=== PATIENT | male | born 1945 | race Caucasian/White ===

== ENCOUNTER 2019-02-10 10:40 | Emergency (ER) | payer OTHER ==
[~2019-02-10] VITALS: Ht 182.9 cm; Wt 108.4 kg
--- NOTE | 2019-02-10 11:31 | Diagnostic Imaging Report ---
INDICATION: Hypertension and chest pain. TIME OF EXAMINATION: 11:15 AM. TECHNIQUE: No prior studies are available for comparison. FINDINGS: The heart size is normal. The pulmonary vascularity is unremarkable. The lungs are clear. No infiltrate, effusion, or pneumothorax is detected. IMPRESSION: No acute cardiopulmonary process is detected. Dictated by: Dictated on workstation # [id number]
[2019-02-10 11:43] LABS: BASOPHILS % (AUTO) 0 % (0-10); EOSINOPHILS # (AUTO) 0.4 10^3/uL (0.0-0.3); EOSINOPHILS % (AUTO) 3 % (0-10); HEMATOCRIT 48 % (40-54); HEMOGLOBIN 15.8 G/DL (13.3-17.7); LYMPHOCYTES # (AUTO) 1.9 X 10^3 (1.0-4.0); LYMPHOCYTES % (AUTO) 18 % (12-44); MEAN CORPUSCULAR HEMOGLOBIN 30 PG (25-34); MEAN CORPUSCULAR HGB CONC 33 G/DL (32-36); MEAN CORPUSCULAR VOLUME 92 FL (80-99); MEAN PLATELET VOLUME 10.4 FL (7.4-10.4); MONOCYTES # (AUTO) 1.3 X 10^3 (0.0-1.0); MONOCYTES % (AUTO) 12 % (0-12); NEUTROPHILS # (AUTO) 7.1 X 10^3 (1.8-7.8); NEUTROPHILS % (AUTO) 66 % (42-75); PLATELET COUNT 217 10^3/uL (130-400); RED CELL DISTRIBUTION WIDTH 14.4 % (10.0-14.5); WHITE BLOOD COUNT 10.8 10^3/uL (4.3-11.0)
[2019-02-10 12:00] LABS: PROTHROMBIN TIME PATIENT 13.1 SEC (12.2-14.7)
[2019-02-10 12:07] LABS: ALANINE AMINOTRANSFERASE 36 U/L (0-55); ALBUMIN 3.9 GM/DL (3.2-4.5); ALKALINE PHOSPHATASE 71 U/L (40-136); BILIRUBIN,TOTAL 0.7 MG/DL (0.1-1.0); BUN/CREATININE RATIO 14; CALCIUM 9.9 MG/DL (8.5-10.1); CARBON DIOXIDE 26 MMOL/L (21-32); CHLORIDE 105 MMOL/L (98-107); CREATININE SERUM 1.38 MG/DL (0.60-1.30); GFR ESTIMATED 51; GLUCOSE 99 MG/DL (70-105); MAGNESIUM 1.9 MG/DL (1.8-2.4); SODIUM 141 MMOL/L (135-145); TOTAL PROTEIN 7.8 GM/DL (6.4-8.2)
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
[2019-02-10 13:13] VITALS: BP 135/83
== END 2019-02-10 13:13 | disposition home or self-care (01) ==
LOC: EDUNIT# 10:40 → ER 10:41
DX: I49.3 Ventricular premature depolarization (principal); M54.12 Radiculopathy, cervical region; I10 Essential (primary) hypertension; F17.210 Nicotine dependence, cigarettes, uncomplicated
CPT/HCPCS: 36415; 71045; 80053; 83735; 83874; 84484; 85025; 85610; 85730; 93005; 93041

== ENCOUNTER → 2019-04-02 | Outpatient (CLI) | payer OTHER ==
[~2019-04-02] MED LIST: CATHETER FLUSH 10 ML SYR IV PRN; REGADENOSON 0.4 MG/5 ML SYR (LEXISCAN) IV ONE
[2019-04-02 10:13] VITALS: BP 159/89
[2019-04-02 10:16] VITALS: BP 158/77
--- NOTE | 2019-04-02 12:40 | STRESS TEST ---
DATE OF SERVICE: 04/02/2019 LEXISCAN MYOVIEW STRESS TEST REPORT REFERRING PHYSICIAN: There is no referring physician. Baseline heart rate is 58, baseline blood pressure 156/89. Baseline EKG is sinus rhythm with frequent PVCs. In summary, the patient received 10.91 mCi of technetium-99 Myoview and the resting images were obtained. Then, the patient received 0.4 mg of Lexiscan followed by 30.1 mCi of technetium-99 Myoview. Throughout the test, there were no EKG changes. The resting and stress images were reviewed and compared in the short axis, horizontal long axis, and vertical long axis views. Review of the images showed diaphragmatic attenuation with good radiotracer uptake, no significant ischemia or infarction. SSS is 1, SDS 1, TID value 1.07. On the gated images, the left ventricle appeared to be normal size with normal contractility. Calculated ejection fraction 56%. CONCLUSION: 1. The patient tolerated Lexiscan well. 2. No ischemia or infarction on SPECT images. 3. Normal left ventricular size with normal contractility. Calculated ejection fraction 56%. Job ID: [id number] DocumentID: [id number] Dictated Date: 04/02/2019 11:54:03 Hand Spray Operator Date: 04/02/2019 12:39:45 Dictated By: RICO TRIMBLE MD
== END ==
LOC: CARD 08:09
PROVIDERS: ATTEND Internal Medicine Cardiovascular Disease
DX: E78.2 Mixed hyperlipidemia (principal); I10 Essential (primary) hypertension; R94.31 Abnormal electrocardiogram [ECG] [EKG]; R06.09 Other forms of dyspnea
CPT/HCPCS: 78452; 93017; 93225; 93226; 93306

== ENCOUNTER 2019-05-14 08:32 | Day surgery (SDC) | payer OTHER ==
[2019-05-14] VITALS (12 sets, daily range): BP systolic 108–140; BP diastolic 57–87
[~2019-05-14] VITALS: Ht 183 cm; Wt 105.0 kg
[2019-05-14] MEDS ORDERED: NS IV 1000 ML 1,000 ML ONE (08:41)
[2019-05-14] MEDS ORDERED: LIDOCAINE 1% INJ 20 ML 20 ML VIAL ONE (08:41)
[2019-05-14] MEDS ORDERED: HEParin (CATH LAB) 2,000 ML IV ONE (08:41)
[2019-05-14] MEDS ORDERED: NS IV 1000 ML 1,000 ML IV SCH ×2 (08:45→11:06)
[2019-05-14 09:15] LABS: MEAN PLATELET VOLUME 10.4 FL (7.4-10.4); WHITE BLOOD COUNT 9.9 10^3/uL (4.3-11.0)
--- NOTE | 2019-05-14 09:26 | Diagnostic Imaging Report ---
INDICATION: Pre-heart catheterization. Patient has hypertension. TIME OF EXAMINATION: 9:01 AM. COMPARISON: Correlation is made with the prior chest from 02/10/2019. FINDINGS: The heart size is stable. The pulmonary vascularity is within normal limits. No infiltrate is detected. No effusion or pneumothorax is identified. There is no evidence of congestive failure. IMPRESSION: No acute cardiopulmonary process is detected. Dictated by: Dictated on workstation # [id number]
[2019-05-14] MEDS ORDERED: CRV25T PO (09:30)
[2019-05-14] MEDS ORDERED: GABA-486 PO (09:30)
[2019-05-14] MEDS ORDERED: RANI150T90 PO (09:30)
[2019-05-14] MEDS ORDERED: NIACIN PO (09:34)
[2019-05-14 09:36] LABS: PROTHROMBIN TIME PATIENT 13.2 SEC (12.2-14.7)
[2019-05-14 09:42] LABS: ALBUMIN 4.2 GM/DL (3.2-4.5); BILIRUBIN,TOTAL 0.5 MG/DL (0.1-1.0); CALCIUM 9.7 MG/DL (8.5-10.1); CREATININE SERUM 1.29 MG/DL (0.60-1.30); POTASSIUM 4.2 MMOL/L (3.6-5.0)
[2019-05-14] MEDS ORDERED: IBUP-2055 PO (09:42)
[2019-05-14] MEDS ORDERED: ASPI325T32 PO (09:42)
--- NOTE | 2019-05-14 10:15 | NUR ---
SPOKE WITH THE PT (HE HAS HIS HOME MEDS) TO COMPLETE THE MED REC. GABAPENTIN: THE BOTTLE SAYS " 2 CAPS HS" BUT PT SAYS HE JUST TAKES 1 CAP HS RANITIDINE: THE BOTTLE SAYS "1 TAB DAILY" PT SAYS HE TAKES 2 TABS DAILY BUT ONLY TAKES PRN THE FOLLOWING ARE FILL DATES: 04-24-2019 GABAPENTIN #180/180DS 04-24-2019 CARVEDILOL #180/90DS 05-11-2019 RANITIDINE #90/45 DS (BUT ONLY USES PRN) OTC MEDS: ASPIRIN 1 DAILY WITH NIACIN
[2019-05-14] MEDS ORDERED: MIDAZOLAM 5 MG/5 ML (VERSED) VIAL ONE (10:26)
[2019-05-14] MEDS ORDERED: fentaNYL INJECTION 100 MCG/2 ML AMP ONE (10:27)
--- NOTE | 2019-05-14 10:27 | Cardiac Procedure Note-CS/ASA ---
Pre-Procedure Note Pre-Op Procedure Note H&P Reviewed The H&P was reviewed, patient examined and no changes noted. Date H&P Reviewed: May 14, 2019 Time H&P Reviewed: 10:27 Conscious Sedation Pre-Proced Time 10:27 ASA Score 3 For ASA 3 and 4: Consider anesthesia and medical clearance. Also, for patients with a history of failed moderate sedation consider anesthesia. Airway Lungs Heart ASA score ASA 1: a normal healthy patient ASA 2: a patient with a mild systemic disease (mid diabetes, controlled hypertension, obesity x ASA 3: a patient with a severe systemic disease that limits activity (angina, COPD, prior Myocardial infarction) ASA 4: a patient with an incapacitating disease that is a constant threat to life (CHF, renal failure) ASA 5: a moribund patient not expected to survive 24 hrs. (ruptured aneurysm) ASA 6: a declared brain- patient whose organs are being harvested. For emergent operations, add the letter E after the classification Mallampati Classification Grade 3 Sedation Plan Analgesia, Amnesia, Plan communicated to team members, Discussed options with patient/fam, Discussed risks with patient/fam The patient is an appropriate candidate to undergo the planned procedure, sedation, and anesthesia. The patient immediately re-assessed prior to indication. RICO TRIMBLE MD May 14, 2019 10:27 POS
[2019-05-14] MEDS ORDERED: meTOprolol 5 MG/5 ML (LOPRESSOR) VIAL ONE (10:43)
[2019-05-14] MEDS ORDERED: NITRO DRIP 25000 MCG/D5W 0 ML IV ONE (10:46)
[2019-05-14] MEDS ORDERED: NITROGLYCERIN 50 MG/10 ML VIAL IV ONE (10:46)
[2019-05-14] MEDS ORDERED: HEParin 1000 UNIT/ML (10ML VIAL) FOR BOLUS ONE (10:46)
[2019-05-14] MEDS ORDERED: ASPI-983 PO (11:08)
--- NOTE | 2019-05-14 11:09 | Discharge Inst-Post CATH ---
Discharge Inst-CATH/EP Problems Reviewed?: Yes Post Cardiac Cath/EP D/C Inst Follow Up/Plan Appointment with Dr. Vieyra's office in 2-4 weeks <b>CARDIAC CATH/EP PROCEDURE DISCHARGE INSTRUCTIONS</b> ACTIVITY * Go Home directly and rest. * Limit activity of the leg (or wrist if it was used) for 7 days including aerob ics, swimming, jogging, bicycling, etc. * Restrict stair-climbing for 7 days if possible, if not, climb up with your non-cath leg, then bring together on the same step. * Avoid lifting, pushing, pulling or excessive movement of the affected extremity for 7 days. * Customary sexual activity may be resumed after 2 days-use caution not to use a position that strains or causes pain to the affected extremity. * No driving for 24 hours. * NO SMOKING. * Avoid straining for bowel movements for 7 days. * Gentle walking on level ground is allowed. * Returning to work will depend on the type of procedure and the results. Your doctor will discuss this with you. CALL YOUR DOCTOR FOR ANY OF THE FOLLOWING: *If bleeding from the puncture site occurs- Apply gentle pressure to site with clean cloth and call your doctor or EMS. * If a knot or lump forms under the skin, increases in size, or causes pain. * If bruising appears to be worsening or moving further down your leg instead of disappearing. * Temperature above 101 F. CARE OF YOUR GROIN INCISION; * Bruising or purple discoloration of the skin near the puncture site is common. * You may shower only, no bathtub bathing for 5 days. Be careful to avoid slipping as your leg may feel stiff. * If a closure device was used on your femoral artery, please see the attached guide regarding care of the device and your leg. * Leave dressing on FOR 24 hours. CARE OF YOUR WRIST INCISION; * Bruising or purple discoloration of the skin near the puncture site is common. * You may shower. * DO NOT submerge wrist. * Leave dressing on FOR 24 hours. RICO VIEYRA MD May 14, 2019 11:08 POS
--- NOTE | 2019-05-14 11:13 | Peripheral Report ---
Peripheral Report Physician (s)/Commutator Tester (s) Physician RICO TRIMBLE MD Pre-Procedure Diagnosis Pre-Procedure Diagnosis: Lower extremities pain Post-Procedure Note Procedure Start Date: May 14, 2019 Name of Procedure: Bilateral runoff Second order Additional imaging Findings/Procedure Note PROCEDURE NOTE: 73 years old gentleman with lower extremities pain, has been having increasing pain, had an abnormal SCARLET, scheduled for angiogram and evaluation of his peripheral arterial disease. After explaining the procedure to the patient, all pros and cons were explained, all questions were answered. The patient signed the consent and then he was placed on the cardiac catheterization laboratory. The patient was placed on the cardiac catheterization laboratory. Groin was prepped SL fashion local anesthesia was used. Sheath placed in the right femoral artery, runoff to the right leg was done and then pigtail catheter advanced with abdominal aorta and angiogram was done to evaluate the bifurcation then using a long stork wire exchange into a straight catheter place in the left common f emoral artery and runoff to the left leg was done. The catheter was removed and I debrided runoff on the right leg using DSA just below the knee to evaluate the trifurcation, at the end of the procedure sheath was removed and closure device used FINDINGS: Right lower extremity: Slow flow down to the trifurcation, re-evaluation of the trifurcation and the leg showed patent artery with slow flow probably small vessel disease Left lower extremity: Slow flow due to low cardiac output, small vessel disease, no significant obstructive disease CONCLUSIONS: 1. Slow flow in the lower extremities, no significant obstructive disease down to the trifurcation and below the trifurcation, the slow flow is probably due to small vessel disease and low cardiac output 2. Lower extremities pain is probably due to neuropathy DISCUSSION AND RECOMMENDATIONS: Medical therapy is recommended, no intervention is needed Anesthesia Type: Conscious Sedation Estimated blood loss (mL): 15 ml Contrast Amount: 28 ml Total Radiation Dose: 271 mGy Post-Procedure Diagnosis Post-operative diagnosis: Peripheral arterial disease Hypertension Hyperlipidemia Peripheral neuropathy RICO TRIMBLE MD May 14, 2019 11:13 POS
[2019-05-14] MEDS ORDERED: PATIENT MAY USE OWN MEDS, ALL PO SCH (11:15)
== END 2019-05-14 16:15 | disposition home or self-care (01) ==
LOC: CATH 08:32 → SDC 11:18 → CATH 16:15
PROVIDERS: ATTEND Internal Medicine Cardiovascular Disease
DX: I73.9 Peripheral vascular disease, unspecified (principal); I10 Essential (primary) hypertension; G62.9 Polyneuropathy, unspecified; E11.42 Type 2 diabetes mellitus with diabetic polyneuropathy; E78.2 Mixed hyperlipidemia; M19.90 Unspecified osteoarthritis, unspecified site; K21.9 Gastro-esophageal reflux disease without esophagitis; E66.9 Obesity, unspecified; F17.210 Nicotine dependence, cigarettes, uncomplicated; I65.23 Occlusion and stenosis of bilateral carotid arteries; Z86.73 Personal history of transient ischemic attack (TIA), and cerebral infarction without residual deficits; Z68.31 Body mass index [BMI] 31.0-31.9, adult; Z82.49 Family history of ischemic heart disease and other diseases of the circulatory system; Z83.3 Family history of diabetes mellitus; Z84.1 Family history of disorders of kidney and ureter
CPT/HCPCS: 36246; 36248; 36415; 71045; 75716; 80053; 80061; 85027; 85610; 85730; 87081; 93005